=== PATIENT | female | born 1980 | race Hispanic/Latino ===

== ENCOUNTER 2023-08-26 10:09 | Emergency (ER) | payer OTHER ==
[2023-08-26] MEDS ORDERED: Tetracaine 0.5% PF 4 ML BOT ONE (11:10)
[2023-08-26] MEDS ORDERED: Fluorescein Opthalmic Strip ONE (11:10)
== END 2023-08-26 11:38 | disposition home or self-care (01) ==
LOC: CSHERS 10:09
DX: S05.02XA Injury of conjunctiva and corneal abrasion without foreign body, left eye, initial encounter (principal); Z87.891 Personal history of nicotine dependence; X58.XXXA Exposure to other specified factors, initial encounter
CPT/HCPCS: 99282